=== PATIENT | female | born 1950 | race Caucasian/White ===

== ENCOUNTER 2019-08-28 11:31 | Observation (INO) | payer MEDICARE, OTHER ==
[~2019-08-28] VITALS: Ht 157.5 cm; Wt 82.4 kg
--- NOTE | 2019-08-28 11:40 | NUR ---
PT TO ROOM FOR BEDSIDE TRIAGE.
--- NOTE | 2019-08-28 12:15 | NUR ---
PT RESTING IN STRETCHER IN NAD. PT DENIES ANY CHEST PAIN AT THIS TIME.
[2019-08-28 12:54] LABS: HEMATOCRIT 38.9 % (37.0-47.0); HEMOGLOBIN 12.9 g/dl (12.0-16.0); IMMATURE GRANULOCYTES 0.2 % (0.0-5.0); MEAN CELL VOLUME 87.6 fL CALC (80.0-100.0); MEAN CORPUSCULAR HGB 29.1 pG CALC (26.0-32.0); MEAN CORPUSCULAR HGB CONC 33.2 g/L CALC (32.0-36.0); NEUT# 2.94 thou/uL (2.00-7.15); RED BLOOD COUNT 4.44 mill/uL (4.20-5.60); RED CELL DISTRI WIDTH 12.5 % (11.5-15.5)
--- NOTE | 2019-08-28 13:10 | NUR ---
PT DENIES ANY PALPITATIONS OR CHEST PRESSURE AT THIS TIME. PT UPDATED ON PLAN OF CARE AND WAIT TIME. CALL NOYOLA WITHIN [facility].
[2019-08-28 13:18] LABS: ALBUMIN 4.4 g/dL (3.2-5.0); ALKALINE PHOSPHATASE 73 u/l (38-126); ANION GAP 13 (6-22 (CALC)); BILIRUBIN, TOTAL 0.4 mg/dL (0.0-1.4); BUN 14 mg/dL (8-23); BUN/CREATININE RATIO 19 (12-20 (CALC)); CARBON DIOXIDE 29 mmol/l (22-30); CHLORIDE 101 mmol/l (95-108); CREATININE 0.8 mg/dL (0.5-1.0); GFR > 60 ML/MIN (>=60 (CALC)); GFR FOR AFR.AMER. > 60 ML/MIN (>=60 (CALC)); POTASSIUM 4.9 mmol/l (3.5-5.1); SGOT/AST 26 u/l (9-36); SODIUM 138 mmol/l (137-146); TOTAL PROTEIN 7.4 g/dL (6.3-8.2)
[2019-08-28 13:30] LABS: MYOGLOBIN 42 ng/mL (0 - 62)
[2019-08-28] MEDS ORDERED: ECOTRIN LOW STR81 MG PO (14:07)
[2019-08-28] MEDS ORDERED: LISINOPRIL20 MG PO (14:08)
[2019-08-28] MEDS ORDERED: TOPROL XL25 M1 PO (14:08)
[2019-08-28] MEDS ORDERED: CALTRAT1 PO (14:09)
[2019-08-28] MEDS ORDERED: VITAMIN D50000 UNIT PO (14:09)
--- NOTE | 2019-08-28 14:30 | NUR ---
PT AWARE OF PLAN FOR ADMISSION AND WAIT TIME. CALL NOYOLA WITHIN REACH.
[2019-08-28 14:41] LABS: URINE BILIRUBIN - DIPSTICK NEGATIVE (NEGATIVE); URINE COLOR YELLOW; URINE GLUCOSE - DIPSTICK NEGATIVE (NEGATIVE); URINE KETONE Negative (NEGATIVE); URINE PROTEIN - DIPSTICK NEGATIVE (NEG-TRACE); URINE SPECIFIC GRAVITY <=1.005; URINE UROBILINOGEN - DIPSTICK 0.2 E.U./dL (0.2)
[2019-08-28 14:42] LABS: URINE BLOOD DIPSTICK NEGATIVE (NEGATIVE); URINE LEUK ESTERASE NEGATIVE (NEGATIVE); URINE NITRITE - DIPSTICK NEGATIVE (Negative)
--- NOTE | 2019-08-28 15:46 | NUR ---
REPORT CALLED TO THUAN WHITE.
--- NOTE | 2019-08-28 16:20 | NUR ---
Admission Note Report Given to: THUAN WHITE Transported by: Wheelchair Stretcher Transported with: X Nurse Transporter X Patent IV O2 X Vehicle Fare Collector PT TO ROOM 272 ON TELE IN STABLE CONDITION.
--- NOTE | 2019-08-28 16:26 | NUR ---
PT ARRIVED TO MED/SURG ROOM 272 IN STABLE CONDITION VIA WHEELCHAIR ACCOMPANIED BY RODRIGO HENDRIX;PT AMBULATED WITH A STEADY GAIT TO STANDING SCALE AND BEDSIDE;WT AND VS OBTAINED;PT A&O X3,ORIENTED TO ROOM AND CALL LIGHT SYSTEM;PT REPORTS PALPITATIONS LASTING A FEW SECONDS STARTING X2 WEEKS AGO;PT DENIES ANY CURRENT PAIN OR DISCOMFORTS,PAIN SCALE AND REPORTING EDUCATED;ASSESSMENT COMPLETED;RESPIRATIONS EVEN AND UNLABORED ON RA,CLEAR LUNG SOUNDS NOTED;ABDOMEN SOFT ON PALPATIONS AND ACTIVE IN ALL 4 QUADRANTS,LAST BM 08/27/19;STRONG PEDAL PULSES;SKIN INTACT;TELE MONITORING IN PLACE;#22G TO RAC FLUSHED AND PATENT,SITE APPEARS;PT DENIES ANY CURRENT ADDITIONAL NEEDS AT THIS TIME AND IS ENCOURAGED TO CALL FOR ASSISTANCE IF NEEDED;FALL PRECAUTIONS IN PLACE WITH BED IN THE LOWEST POSITION AND CALL LIGHT IN REACH;WILL CONTINUE TO MONITOR
[2019-08-28 16:32] VITALS: BP 158/67
--- NOTE | 2019-08-28 18:02 | NUR ---
PT RESTING IN SEMI FOWLERS POSITION WITH FAMILY AT BEDSIDE;RESPIRATIONS EVEN AND UNLABORED ON RA;PT DENIES ANY CURRENT PAIN OR DISCOMFORTS;TELE MONITORING IN PLACE;IV SITE TO RAC PATENT;PT DENIES ANY ADDITIONAL NEEDS AT THIS TIME AND IS ENCOURAGED TO CALL FOR ASSISTANCE IF NEEDED;CALL LIGHT IN REACH;WILL CONTINUE TO MONITOR
[2019-08-28 18:25] VITALS: BP 135/69
--- NOTE | 2019-08-28 19:15 | NUR ---
REPORT REC. PT SITTING IN BED WITH AT BEDSIDE. NO DISTRESS NOTED.
--- NOTE | 2019-08-28 20:10 | NUR ---
PT SITTING IN BED WITH AT BEDSIDE. A&O X3. NO DISTRESS NOTED. NO PAIN AT THIS TIME. ASSESSMENT COMPLETED AT THIS TIME. DISCUSSED POC. CALL LIGHT IN REACH. CONTINUE TO MONITOR.
[2019-08-28 23:20] VITALS: BP 119/67
--- NOTE | 2019-08-29 00:10 | NUR ---
PT SLEEPING IN BED WITH AT BEDISDE. NO DISTRESS NOTED. BREATHING EVEN AND UNLABORED. CONTINUE TO MONITOR.
[2019-08-29 01:22] VITALS: BP 137/85
[2019-08-29 04:02] VITALS: BP 117/55
[2019-08-29 06:25] LABS: CHOLESTEROL HDL RATIO 2.9 (<4.4 (CALC))
--- NOTE | 2019-08-29 07:00 | NUR ---
REPORT RECEIVED FROM CARLEYRN;PT RESTING IN SEMI FOWLERS POSITION WITH SPOUSE AT BEDSIDE;INTRODUCED SELF TO PT AND POC DISCUSSED;RESPIRATIONS EVEN AND UNLABORED ON RA;PT DENIES ANY CURRENT CHEST PAIN OR PRESSURE;TELE MONITORING IN PLACE;PT ENCOURAGED TO CALL FOR ASSISTANCE IF NEEDED;CALL LIGHT IN REACH;WILL CONTINUE TO MONITOR
[2019-08-29 08:58] VITALS: BP 127/64
--- NOTE | 2019-08-29 09:00 | NUR ---
PT RESTING IN SEMI FOWLERS POSITION WITH SPOUSE AT BEDSIDE,A&O X3;VS OBTAINED AND ASSESSMENT COMPLETED;PT DENIES ANY CURRENT CHEST PAIN OR PRESSURE,PAIN SCALE AND REPORTING EDUCATED;RESPIRATIONS EVEN AND UNLABORED ON RA,CLEAR LUNG SOUNDS;ABDOMEN SOFT ON PALPATION AND ACTIVE IN ALL 4 QUADRANTS;SKIN INTACT;TELE MONITORING IN PLACE;STRONG PEDAL PULSES;#22G TO RAC FLUSHED AND PATENT,SITE APPEARS HEALTHY;PT DENIES ANY ADDITIONAL NEEDS AT THIS TIME AND IS ENCOURAGED TO CALL FOR ASSISTANCE IF NEEDED;CALL LIGHT IN REACH;WILL CONTINUE TO MONITOR
[2019-08-29 10:57] VITALS: BP 129/50
--- NOTE | 2019-08-29 11:35 | NUR ---
PT RESTING IN SEMI FOWLERS POSITION WITH SPOUSE AT BEDSIDE;RESPIRATIONS EVEN AND UNLABORED ON RA;PT DENIES ANY CURRENT PAIN OR DISCOMFORTS;TELE MONITORING IN PLACE;PT ENCOURAGED TO CALL FOR ASSISTANCE IF NEEDED;FALL PRECAUTIONS IN PLACE WITH CALL LIGHT IN REACH;WILL CONTINUE TO MONITOR
--- NOTE | 2019-08-29 12:22 | NUR ---
AT BEDSIDE DISCUSSING POC WITH PT AND SPOUSE INCLUDING PLANS TO D/C HOME,PT VERBALIZES UNDERSTANDING.
--- NOTE | 2019-08-29 14:00 | NUR ---
ALL DISCHARGE INSTRUCTIONS PROVIDED AT THIS TIME;PT INSRUCTED TO FOLLOW UP WITH PCP IN 2 WEEKS TIME AND CONTINUE ALL HOME MEDICATIONS;IV SITE REMOVED WITH CATHETER INTACT AND TELE MONITORING D/C;PT DENIES ANY ADDITIONAL NEEDS AT THIS TIME;PT REFUSES WHEELCHAIR FOR D/C HOME;SPOUSE TO TRANSPORT PT HOME.
--- NOTE | 2019-08-29 14:04 | NUR ---
Discharge instructions given. Patient verbalizes understanding of same. Discharged in stable condition via Ambulatory to Home with spouse. All belongings sent with pt. PT AMBULATED TO [facility] IN STABLE CONDITION ACCOMPANIED BY SPOUSE FOR D/C HOME,SPOUSE TO TRANSPORT PT HOME.
== END 2019-08-29 14:04 | disposition home or self-care (01) ==
LOC: ED 11:31 → ED-I 13:53 → ED 14:04 → MS2 14:05
PROVIDERS: Family Medicine; Nurse Practitioner Family; ADMIT Internal Medicine; ATTEND Internal Medicine
DX: R07.89 Other chest pain (principal); R00.2 Palpitations; I10 Essential (primary) hypertension
CPT/HCPCS: G0378

== ENCOUNTER 2021-07-05 07:41 | Day surgery (SDC) | payer MEDICARE, OTHER ==
[~2021-07-05] VITALS: Ht 160 cm; Wt 59.0 kg
[~2021-07-05 07:41] MED LIST: CALCIUM MAGNESIUM & PO; CALTRAT1 PO; ECOTRIN LOW STR81 MG PO; LISINOPRIL20 MG PO; TOPROL XL25 M1 PO; VITAMIN D50000 UNIT PO
[2021-07-05 14:19] VITALS: BP 130/61
== END 2021-07-05 10:03 | disposition home or self-care (01) ==
LOC: ENDO 07:41 → ORM 08:30 → ENDO 09:30 → ORM 09:30 → ENDO 10:03
PROVIDERS: ATTEND Surgery
PROC: 0DJD8ZZ Inspection of Lower Intestinal Tract, Via Natural or Artificial Opening Endoscopic (ICD-10-PCS; principal; 2021-07-05)
DX: Z12.11 Encounter for screening for malignant neoplasm of colon (principal); K57.30 Diverticulosis of large intestine without perforation or abscess without bleeding; I10 Essential (primary) hypertension; Z86.010 Personal history of colon polyps

== ENCOUNTER 2023-04-01 23:25 | Emergency (ER) | payer MEDICARE, OTHER ==
[~2023-04-01] VITALS: Ht 157.5 cm; Wt 56.6 kg
[2023-04-01 23:37] VITALS: BP 183/88
[2023-04-01 23:45] VITALS: BP 186/79
[2023-04-02 00:08] LABS: BASO% 0.5 % (0-3); EOS% 3.2 % (0-8); HEMATOCRIT 38.8 % (37.0-47.0); HEMOGLOBIN 12.2 g/dl (12.0-16.0); IMMATURE GRANULOCYTES 0.2 % (0.0-5.0); LYMPH% 43.8 % (15-41); MEAN CELL VOLUME 89.6 fL CALC (80.0-100.0); MEAN CORPUSCULAR HGB 28.2 pG CALC (26.0-32.0); MEAN CORPUSCULAR HGB CONC 31.4 g/dL CAL (32.0-36.0); MONO% 13.7 % (2-13); NEUT# 2.14 thou/uL (2.00-7.15); NEUT% 38.6 % (42-76); RED BLOOD COUNT 4.33 mill/uL (4.20-5.60); RED CELL DISTRI WIDTH 13.2 % (11.5-15.5)
[2023-04-02 00:21] LABS: ALBUMIN 4.1 g/dL (3.2-5.0); ALKALINE PHOSPHATASE 68 u/l (38-126); ANION GAP 10 (6-22 (CALC)); BILIRUBIN, TOTAL 0.5 mg/dL (0.02-1.3); BUN 16 mg/dL (8-23); BUN/CREATININE RATIO 16 (12-20 (CALC)); CARBON DIOXIDE 30 mmol/l (22-30); CHLORIDE 103 mmol/l (95-108); GFR FOR AFR.AMER. > 60 ML/MIN (>=60 (CALC)); GFR OTHER RACES 54 ML/MIN (>=60 (CALC)); MAGNESIUM 2.3 mg/dL (1.6-2.3); POTASSIUM 4.1 mmol/l (3.5-5.1); SGOT/AST 22 u/l (9-36); SODIUM 138 mmol/l (137-146); TOTAL PROTEIN 6.6 g/dL (6.3-8.2)
[2023-04-02 00:31] VITALS: BP 153/70
[2023-04-02 00:45] VITALS: BP 144/63
[2023-04-02 00:53] LABS: TSH, 3RD GENERATION 3.75 uIU/mL (0.47 - 4.68)
[2023-04-02 01:00] VITALS: BP 139/63
[2023-04-02 01:15] VITALS: BP 126/62
[2023-04-02 01:30] VITALS: BP 141/64
[2023-04-02 01:45] VITALS: BP 138/58
== END 2023-04-02 01:57 | disposition home or self-care (01) ==
LOC: ED 23:25
PROVIDERS: Family Medicine
DX: G20 Parkinson's disease (principal); I10 Essential (primary) hypertension

== ENCOUNTER 2023-05-18 12:47 | Emergency (ER) | payer MEDICARE, OTHER ==
[~2023-05-18] VITALS: Ht 157.5 cm; Wt 53.0 kg
[2023-05-18 12:52] VITALS: BP 164/76
[2023-05-18 13:00] VITALS: BP 170/88
[2023-05-18 13:15] VITALS: BP 164/71
[2023-05-18 13:30] VITALS: BP 159/59
== END 2023-05-18 13:30 | disposition home or self-care (01) ==
LOC: ED 12:47
DX: T18.198A Other foreign object in esophagus causing other injury, initial encounter (principal); I10 Essential (primary) hypertension; G20 Parkinson's disease; X58.XXXA Exposure to other specified factors, initial encounter